=== PATIENT | female | born 1990 | race Caucasian/White ===

== ENCOUNTER 2018-01-01 07:44 | Emergency (ER) | payer BC ==
[~2018-01-01] VITALS: Ht 157.5 cm; Wt 44.5 kg
[2018-01-01] MEDS ORDERED: FAMOTIDINE 20 MG TAB PO ONE (08:00)
[2018-01-01] MEDS ORDERED: DEXAMETHASONE 10MG/ML PF INJ INJ ONE (08:00)
[2018-01-01] MEDS ORDERED: DEXAMETHASONE SOD PHOS 10 MG/1 ML VIAL INJ NR (08:15)
== END 2018-01-01 08:46 | disposition home or self-care (01) ==
LOC: ER 07:44
DX: L50.6 Contact urticaria (principal)
CPT/HCPCS: 99282; J1100